=== PATIENT | female | born 1965 | race Caucasian/White ===

== ENCOUNTER → 2017-10-10 | Outpatient (CLI) | payer BC ==
--- NOTE | 2017-10-10 08:23 | RAD ---
EXAM DESCRIPTION: Right humerus, 2 views CLINICAL HISTORY: PAIN IN RIGHT ARM FINDINGS/ IMPRESSION: No fracture. Normal mineralization. No lytic or blastic bony lesion No advanced arthrosis or osteochondral lesion of the glenohumeral joint or elbow Electronically signed by: Girma Unger MD 10/10/2017 8:21 AM CDT
== END ==
LOC: RAD 07:43
PROVIDERS: ATTEND Orthopaedic Surgery
DX: M79.601 Pain in right arm (principal)